=== PATIENT | female | born 1990 | race Caucasian/White ===

== ENCOUNTER 2024-03-29 21:34 | Emergency (ER) | payer SELFPAY ==
--- NOTE | 2024-03-29 21:40 | PC.NURSE ---
While this RN was triaging pt at desk pt began thrashing in wheelchair. Pt then hit head off of triage counter. Pt yelling that her legs hurt. SO of pt states pt typically gets dialysis x3 days per week, but they have been on a road trip and stopping at hospitals to receive dialysis. Pt signed herself out AMA from hospital yesterday prior to receiving full treatment.
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
[2024-03-29 22:04] LABS: Glucose Point of Care 144 mg/dl (65-105)
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
--- NOTE | 2024-03-29 22:10 | ED.GENADULT ---
HPI - General Adult General Chief complaint: Recheck/Abnormal Lab/Rx Stated complaint: needs dialysis Time Seen by Provider: 03/29/24 21:53 History of Present Illness HPI narrative: Patient 33-year-old female presents emergency department with chief complaint of needs dialysis. Patient is currently on a road trip from [place] to [place] the patient has been stopping at multiple hospitals along the way to try to get dialysis reports that she stopped yesterday in [place] head dialysis for about 4 hours but they only took off a small amount of fluid the patient states that she feels edematous and reports that she wants dialysis again the patient was not cooperative with staff and reports that she wants to leave Review of Systems Review of Systems: A 10 system review of systems was completed on the patient and is negative except for what is stated in the HPI. Nursing and ancillary documentation was reviewed. Exam Narrative: GENERAL: Well-appearing, well-nourished, and in no acute distress. HEAD: Normocephalic, atraumatic. EYES: PERRLA and EOMI. ENT: Nares clear, no rhinorrhea or epistaxis. Mucous membranes moist. NECK: Supple. CHEST: Clear to auscultation. No respiratory distress. Dialysis access present in the right chest HEART: Regular rate and rhythm. No murmur heard. Normal peripheral pulses. ABDOMEN: Soft, nontender, nondistended, normal active bowel sounds. EXTREMITIES: Normal range of motion. No edema. The patient had bilateral AKAs SKIN: Warm, dry, no rash. NEURO: No focal deficits. Alert and oriented x3. PSYCH: Normal mood and affect. Medical Decision Making MDM Narrative Medical decision making narrative: Patient was offered medical screening exam to determine if there is no emergency medical condition present. The patient chose to leave before any testing was done Lab Data Labs: Lab Results 03/29/24 Range/Units 21:51 POC Capillary Glucose 144 H (65-105) mg/dl Discharge Plan Discharge Clinical Impression: End stage renal disease on dialysis Patient Disposition: Left Against Medical Advice Condition: Stable Follow-up/Referrals: UNKNOWN,DOCTOR [Primary Care Provider] - Time of Disposition: 22:21
== END 2024-03-29 22:35 | disposition left against medical advice (07) ==
PROVIDERS: Emergency Provider Emergency Medicine
DX: N18.6 End stage renal disease (principal); Z99.2 Dependence on renal dialysis
CPT/HCPCS: 82948; 99282